=== PATIENT | male | born 1940 | race Caucasian/White ===

== ENCOUNTER → 2016-04-02 | Outpatient (CLI) | payer BC ==
[~2016-04-02] MED LIST: AMIO200T4 PO; ARC10 PO; ARC5 PO; ASPI81TA21 PO; CETI10TA84 PO; COEN1CAP7 PO; COLC0.6T54 PO; CRD200 PO; CYAN10004 PO; DABI150C PO; DOCU-94 PO; ESCI1TAB10 PO; GABA1CAP4 PO; IMDSR30 PO; ISOS30TA3 PO; ISOS60TA25 PO; LPT/20 PO; METO25TA56 PO; MIRA100T PO; MIRA1TAB3 PO; NITR0.4S UT; NRN300 PO; OMEG10007 PO; PROSVENT PO; PRT/20 PO; SYN137 PO; ZLF/100 PO
[2016-04-02 17:07] LABS: URINE APPEARANCE CLEAR (CLEAR); URINE BILIRUBIN NEG (NEG); URINE COLOR YELLOW; URINE NITRITE NEG (NEG); URINE SPECIFIC GRAVITY 1.017 (1.000-1.030); UROBILINOGEN NEG (NEG); ZZUR CULT IF INDIC CLEAN CATCH NO
[2016-04-02 17:17] LABS: MANUAL MICROSCOPIC REQUIRED? NO; REVIEW REQ? NO
[2016-04-02 17:27] LABS: BLOOD UREA NITROGEN 27 mg/dl (7-18); BUN/CREATININE RATIO 14.2 (10-20); CALCIUM 8.9 mg/dl (8.5-10.1); CARBON DIOXIDE 26 mmol/L (21-32); CHLORIDE 101 mmol/L (98-107); GLUCOSE 112 mg/dl (70-99); MAGNESIUM 1.9 mg/dl (1.8-2.4); SODIUM 139 mmol/L (136-145)
[2016-04-02 17:29] LABS: URINE PROTIEN/CREAT RATIO 0.5 (0-0.2); URINE TOTAL PROTEIN 82.3 mg/dl (0-11.9)
[2016-04-02 17:38] LABS: PHOSPHORUS 3.1 mg/dl (2.5-4.9)
== END | disposition home or self-care (01) ==
LOC: C.LABBC 15:10
PROVIDERS: ATTEND Internal Medicine Nephrology
DX: N18.4 Chronic kidney disease, stage 4 (severe) (principal); E03.9 Hypothyroidism, unspecified

== ENCOUNTER → 2016-06-05 | Outpatient (CLI) | payer BC ==
[2016-06-05 15:17] LABS: THYROID STIMULATING HORMONE 75.1 uIu/ml (0.300-4.500)
== END | disposition home or self-care (01) ==
LOC: C.LAB1850 13:46
PROVIDERS: ATTEND Internal Medicine
DX: E03.9 Hypothyroidism, unspecified (principal)

== ENCOUNTER 2016-07-12 19:10 | Emergency (ER) | payer BC ==
[~2016-07-12] VITALS: Ht 175.3 cm; Wt 90.9 kg
[~2016-07-12 19:10] MED LIST changes: -AMIO200T4 PO; -ARC10 PO; -ASPI81TA21 PO; -CETI10TA84 PO; -DABI150C PO; -DOCU-94 PO; -ISOS30TA3 PO; -ISOS60TA25 PO; -MIRA1TAB3 PO; -NITR0.4S UT; -NRN300 PO; -PROSVENT PO; -PRT/20 PO; -SYN137 PO; -ZLF/100 PO
[2016-07-12 19:13] VITALS: TEMP 36.4; Ht 175.3 cm; Wt 90.9 kg
--- NOTE | 2016-07-12 19:52 | EMERGENCY ROOM VISIT NOTE ---
History Report prepared by Parminder: Rubén Willard Under the Supervision of: Dr. Deven Hobbs M.D. First contact with patient: 19:30 Chief Complaint: CONFUSION Stated Complaint: CONFUSION Nursing Triage Summary: per family pt is confused at times yesterday worse than today. pt alert and oriented at present. History of Present Illness The patient is a 75 year old male who presents to the Emergency Room with complaints of worsening confusion starting yesterday. The patient's family states that the patient has had confusion before, however this is worse than usual. The family additionally is stating that the patient has some chronic weakness in one side, and they state that he was complaining of a headache. The family denies any pacemaker or recent change in medication. They additionally state that the patient has Alzheimer's however, it is not usually this bad. Source of History: patient, family Onset: yesterday Position: other (global) Quality: other (confusion) Timing: worsening Associated Symptoms: + headache, + weakness Review of Systems See HPI for pertinent positives & negatives. A total of 10 systems reviewed and were otherwise negative. Past Medical & Surgical Medical Problems: (1) Anxiety State Nos (2) Arterial Disease Nos (3) Atrial Fibrillation (4) Cva (5) Halter monitor (6) Hyperlipidemia Nec/Nos (7) Hypertension Nos (8) Lumbar Disc Displacement (9) Old Myocardial Infarct (10) Renal & Ureteral Dis Nos (11) Urin Tract Infection Nos Family History GI Malignancy Stroke Social History Smoking Status: Former Smoker Alcohol Use: none Drug Use: none Marital Status: Housing Status: lives with significant other Occupation Status: retired Current/Historical Medications Scheduled Amiodarone Hcl (Cordarone), 200 MG PO BID Aspirin Enteric Coated (Ecotrin Or Generic), 81 MG PO DAILY Dabigatran Etexilate Mesylate (Pradaxa), 150 MG PO BID Donepezil HCl (Donepezil HCl), 5 MG PO DAILY Escitalopram Oxalate (Lexapro), 20 MG PO DAILY Gabapentin (Gabapentin), 300 MG PO BID Isosorbide Mononitrate Ext Rel (Imdur Ext Rel), 60 MG PO QAM Metoprolol Tartrate (Lopressor) (Lopressor), 25 MG PO BID Mirabegron (Myrbetriq Er), 25 MG PO DAILY Nitroglycerin (Nitrostat), 0.4 MG UT PRN Scheduled PRN Pantoprazole (Protonix), 20 MG PO DAILY PRN for GI Upset Allergies Coded Allergies: Rosuvastatin (Verified Allergy, Unknown, muscle aches, 07/12/16) Physical Exam Vital Signs Date Time Temp Pulse Resp B/P Pulse Ox O2 Delivery O2 Flow Rate FiO2 07/12/16 22:20 50 18 168/82 98 Room Air 07/12/16 21:06 46 18 164/83 96 Room Air 07/12/16 19:53 46 18 157/60 96 Room Air 07/12/16 19:33 46 07/12/16 19:13 36.4 50 20 186/94 98 Room Air Physical Exam GENERAL: Patient is elderly appearing and in no acute distress. HEENT: No acute trauma, normocephalic atraumatic, mucous membranes moist, no nasal congestion, no scleral icterus. NECK: No stridor, no adenopathy, no meningismus, trachea is midline. LUNGS: No dyspnea. Clear to auscultation and equal bilaterally. No wheeze, no rhonchi. HEART: Regular rate and rhythm. No murmurs, rubs, gallops appreciated. ABDOMEN: Soft, nontender, bowel sounds positive, no masses appreciated, no peritonitis. BACK: No midline tenderness, no CVA tenderness EXTREMITIES: Normal motion all extremities, no cyanosis, no edema. NEUROLOGIC: aware of locations, but periodically asks the same question. Mild dementia family states this is an acute change. No acute motor or sensory deficits, no focal weakness, cranial nerves grossly intact. SKIN: No rash, no jaundice, no diaphoresis. Medical Decision & Procedures ER Provider Diagnostic Interpretation: Radiology results and stated below per my review and radiologist interpretation: CT OF THE HEAD WITHOUT CONTRAST CLINICAL HISTORY: Generalized weakness. Confusion. COMPARISON STUDY: Head CT January 10, 2014 and MRI of the brain October 03, 2015. CT DOSE: 687.98 mGy.cm TECHNIQUE: Helical axial images of the head were obtained without IV contrast. Automated exposure control was utilized for the study. FINDINGS: No acute intracranial hemorrhage, midline shift or mass effect is present. Ventricular dilatation is unchanged. Basilar cisterns are patent. No extra-axial collections are present. An old left frontal lobe infarct is noted. White matter hypodensity suggests small vessel disease. There are no CT findings to suggest acute dural sinus thrombosis or acute territorial infarct. There are no significant calvarial abnormalities. There is mild mucosal thickening of the sinuses. IMPRESSION: No acute intracranial findings. Electronically signed by: Ronal Crocker M.D. 07/12/2016 8:51 PM Dictated Date/Time: 07/12/2016 8:48 PM CHEST ONE VIEW PORTABLE CLINICAL HISTORY: Generalized weakness. COMPARISON STUDY: Chest radiograph August 30, 2014. FINDINGS: Lung volumes are normal. There is no consolidation to suggest pneumonia. There is no evidence of pulmonary edema. Cardiomediastinal silhouette is stable. Widening of the right paratracheal stripe is unchanged. IMPRESSION: No acute cardiopulmonary findings. Electronically signed by: Ronal Crocker M.D. 07/12/2016 8:00 PM Dictated Date/Time: 07/12/2016 7:58 PM Laboratory Results 07/12/16 19:15 Red Blood Count 4.94, Mean Corpuscular Volume 92.5, Mean Corpuscular Hemoglobin 32.2, Mean Corpuscular Hemoglobin Concent 34.8, Mean Platelet Volume 12.1, Neutrophils (%) (Auto) 63.2, Lymphocytes (%) (Auto) 22.5, Monocytes (%) (Auto) 8.5, Eosinophils (%) (Auto) 4.9, Basophils (%) (Auto) 0.5, Neutrophils # (Auto) 4.62, Lymphocytes # (Auto) 1.65, Monocytes # (Auto) 0.62, Eosinophils # (Auto) 0.36, Basophils # (Auto) 0.04 07/12/16 19:15 Test 07/12/16 19:15 07/12/16 20:30 White Blood Count 7.32 K/uL (4.8-10.8) Red Blood Count 4.94 M/uL (4.7-6.1) Hemoglobin 15.9 g/dL (14.0-18.0) Hematocrit 45.7 % (42-52) Mean Corpuscular Volume 92.5 fL (80-100) Mean Corpuscular Hemoglobin 32.2 pg (25-34) Mean Corpuscular Hemoglobin Concent 34.8 g/dl (32-36) Platelet Count 130 K/uL (130-400) Mean Platelet Volume 12.1 fL (7.4-10.4) Neutrophils (%) (Auto) 63.2 % Lymphocytes (%) (Auto) 22.5 % Monocytes (%) (Auto) 8.5 % Eosinophils (%) (Auto) 4.9 % Basophils (%) (Auto) 0.5 % Neutrophils # (Auto) 4.62 K/uL (1.4-6.5) Lymphocytes # (Auto) 1.65 K/uL (1.2-3.4) Monocytes # (Auto) 0.62 K/uL (0.11-0.59) Eosinophils # (Auto) 0.36 K/uL (0-0.5) Basophils # (Auto) 0.04 K/uL (0-0.2) RDW Standard Deviation 49.0 fL (36.4-46.3) RDW Coefficient of Variation 14.5 % (11.5-14.5) Immature Granulocyte % (Auto) 0.4 % Immature Granulocyte # (Auto) 0.03 K/uL (0.00-0.02) Platelet Estimate DECREASED Prothrombin Time 16.1 SECONDS (9.0-12.0) Prothromb Time International Ratio 1.5 (0.9-1.1) Activated Partial Thromboplast Time 53.4 SECONDS (21.0-31.0) Partial Thromboplastin Ratio 2.1 Anion Gap 9.0 mmol/L (3-11) Est Creatinine Clear Calc Drug Dose 35.0 ml/min Estimated GFR () 36.5 Estimated GFR (Non- 31.5 BUN/Creatinine Ratio 17.8 (10-20) Calcium Level 8.8 mg/dl (8.5-10.1) Phosphorus Level 3.5 mg/dl (2.5-4.9) Magnesium Level 2.3 mg/dl (1.8-2.4) Total Bilirubin 0.8 mg/dl (0.2-1) Direct Bilirubin 0.2 mg/dl (0-0.2) Aspartate Amino Transf (AST/SGOT) 29 U/L (15-37) Alanine Aminotransferase (ALT/SGPT) 46 U/L (12-78) Alkaline Phosphatase 78 U/L (45-117) Total Creatine Kinase 55 U/L (39-308) Creatine Kinase MB < 0.5 ng/ml (0.5-3.6) Creatine Kinase MB Ratio (0-3.0) Troponin I < 0.015 ng/ml (0-0.045) Total Protein 7.9 gm/dl (6.4-8.2) Albumin 4.0 gm/dl (3.4-5.0) Lipase 198 U/L (73-393) Urine Color YELLOW Urine Appearance CLEAR (CLEAR) Urine pH 5.0 (4.5-7.5) Urine Specific [place] 1.019 (1.000-1.030) Urine Protein 1+ (NEG) Urine Glucose (UA) NEG (NEG) Urine Ketones NEG (NEG) Urine Occult Blood 1+ (NEG) Urine Nitrite NEG (NEG) Urine Bilirubin NEG (NEG) Urine Urobilinogen NEG (NEG) Urine Leukocyte Esterase TRACE (NEG) Urine WBC (Auto) 1-5 /hpf (0-5) Urine RBC (Auto) 0-4 /hpf (0-4) Urine Hyaline Casts (Auto) 1-5 /lpf (0-5) Urine Epithelial Cells (Auto) 20-30 /lpf (0-5) Urine Bacteria (Auto) NEG (NEG) Laboratory results as reviewed by me. Medications Administered Medications (Trade) Dose Ordered Sig/Charla Route Start Time Stop Time Status Last Admin Dose Admin Sodium Chloride (Nss 500ml) 500 ml @ 999 mls/hr Q31M STAT IV 07/12/16 20:59 07/12/16 21:29 DC 07/12/16 21:06 999 MLS/HR ECG Indication: other (confusion) Rate (beats per minute): 46 Rhythm: sinus bradycardia Findings: no acute ischemic change, no ectopy ED Course 1929: The patient was evaluated in room A9. A complete history and physical exam was performed. 2058: Sodium Chloride 500 ml @ 999 mls/hr IV 2055: I reassessed the patient, and he was in no distress, and I discussed the plan to go home with the family, and they are comfortable with it. 2146: Reevaluated the patient, and he feels much better, and his family notes that he is back to his normal self. Discussed results and discharge instructions : The verbalized understanding and agreement. The patient is ready for discharge. Medical Decision Differential: Toxicological, Infectious, Stroke, SAH, Trauma, Electrolyte Abnormality, Hypoglycemia, Alcohol Intoxication, Drug Intoxication, Cardiac Abnormality, Sepsis, Meningitis/Encephalitis, Trauma, Excited Delirium, Serotonin Syndrome, Psychiatric, amongst other pathologies entertained. 75 yr old male arrives with worsening of his confusion from his baseline Alzheimer dz. Vastly improved with 500ml IV NSS. Labs with mild BUN elevation consistent with some dehydration. No evidence UTI, pna. He does not have meningitis. He looks well and is in no distress. Family admits he hasn't been drinking much because he doesn't like too. They feel completely comfortable bringing him home. RTED if worsening or other concerns. Impression Primary Impression: Dehydration Additional Impression: Confusion Scribe Attestation The scribe's documentation has been prepared under my direction and personally reviewed by me in its entirety. I confirm that the note above accurately reflects all work, treatment, procedures, and medical decision making performed by me. Departure Information Dispostion Home / Self-Care Referrals Orlin Yanez M.D. (PCP) Forms HOME CARE DOCUMENTATION FORM, IMPORTANT VISIT INFORMATION, WORK / SCHOOL INSTRUCTIONS Patient Instructions ED Dehydration, My [facility] Health Problem Qualifiers
--- NOTE | 2016-07-12 20:01 | DIAGNOSTIC IMAGING REPORT ---
CHEST ONE VIEW PORTABLE CLINICAL HISTORY: Generalized weakness. COMPARISON STUDY: Chest radiograph August 30, 2014. FINDINGS: Lung volumes are normal. There is no consolidation to suggest pneumonia. There is no evidence of pulmonary edema. Cardiomediastinal silhouette is stable. Widening of the right paratracheal stripe is unchanged. IMPRESSION: No acute cardiopulmonary findings. Electronically signed by: Ronal Crocker M.D. 07/12/2016 8:00 PM Dictated Date/Time: 07/12/2016 7:58 PM
[2016-07-12] MEDS ORDERED: AMIO200T4 PO (20:10)
[2016-07-12 20:23] LABS: INR 1.5 (0.9-1.1); PARTIAL THROMBOPLASTIN RATIO 2.1; PROTHROMBIN TIME (PATIENT) 16.1 SECONDS (9.0-12.0)
[2016-07-12 20:28] LABS: BASO % 0.5 %; BASO ABS # 0.04 K/uL (0-0.2); COMPLETE YES; EOS % 4.9 %; HEMATOCRIT 45.7 % (42-52); IG% 0.4 %; LYMPH % 22.5 %; LYMPH ABS # 1.65 K/uL (1.2-3.4); MEAN CELL VOLUME 92.5 fL (80-100); MEAN CORPUSCULAR HEMOGLOBIN 32.2 pg (25-34); MEAN CORPUSCULAR HGB CONC 34.8 g/dl (32-36); MEAN PLATELET VOLUME 12.1 fL (7.4-10.4); MONO % 8.5 %; NEUT % 63.2 %; PLATELET COUNT 130 K/uL (130-400); PLT ESTIMATE DECREASED; RED BLOOD COUNT 4.94 M/uL (4.7-6.1); WHITE BLOOD COUNT 7.32 K/uL (4.8-10.8)
[2016-07-12 20:35] LABS: ALT/SGPT 46 U/L (12-78); AST/SGOT 29 U/L (15-37); BLOOD UREA NITROGEN 36 mg/dl (7-18); BUN/CREATININE RATIO 17.8 (10-20); CALCIUM 8.8 mg/dl (8.5-10.1); CARBON DIOXIDE 29 mmol/L (21-32); CHLORIDE 103 mmol/L (98-107); GLUCOSE 101 mg/dl (70-99); MAGNESIUM 2.3 mg/dl (1.8-2.4); POTASSIUM 4.1 mmol/L (3.5-5.1); SODIUM 141 mmol/L (136-145)
[2016-07-12 20:38] LABS: ALKALINE PHOSPHATASE 78 U/L (45-117); PHOSPHORUS 3.5 mg/dl (2.5-4.9)
[2016-07-12 20:52] LABS: URINE APPEARANCE CLEAR (CLEAR); URINE BILIRUBIN NEG (NEG); URINE COLOR YELLOW; URINE EPITHELIAL CELL AUTO 20-30 /lpf (0-5); URINE NITRITE NEG (NEG); URINE SPECIFIC GRAVITY 1.019 (1.000-1.030); UROBILINOGEN NEG (NEG); ZZUR CULT IF INDIC CLEAN CATCH NO
--- NOTE | 2016-07-12 20:52 | DIAGNOSTIC IMAGING REPORT ---
CT OF THE HEAD WITHOUT CONTRAST CLINICAL HISTORY: Generalized weakness. Confusion. COMPARISON STUDY: Head CT January 10, 2014 and MRI of the brain October 03, 2015. CT DOSE: 687.98 mGy.cm TECHNIQUE: Helical axial images of the head were obtained without IV contrast. Automated exposure control was utilized for the study. FINDINGS: No acute intracranial hemorrhage, midline shift or mass effect is present. Ventricular dilatation is unchanged. Basilar cisterns are patent. No extra-axial collections are present. An old left frontal lobe infarct is noted. White matter hypodensity suggests small vessel disease. There are no CT findings to suggest acute dural sinus thrombosis or acute territorial infarct. There are no significant calvarial abnormalities. There is mild mucosal thickening of the sinuses. IMPRESSION: No acute intracranial findings. Electronically signed by: Ronal Crocker M.D. 07/12/2016 8:51 PM Dictated Date/Time: 07/12/2016 8:48 PM
[2016-07-12 20:54] LABS: MANUAL MICROSCOPIC REQUIRED? NO; REVIEW REQ? NO
[2016-07-12] MEDS ORDERED: SODIUM CHLORIDE 0.9% 500ML 500 ML IV STA (20:59)
[2016-07-12 22:20] VITALS: BP 168/82; PULSE 50; O2SAT 98
[2016-07-13] MEDS ORDERED: DABI150C PO (12:14)
[2016-07-13] MEDS ORDERED: ASPI81TA21 PO (13:56)
[2016-07-13] MEDS ORDERED: AMIO200T4 PO (15:57)
[2016-07-13] MEDS ORDERED: ZLF/100 PO (15:57)
[2016-07-13] MEDS ORDERED: DOCU-94 PO (15:57)
[2016-07-13] MEDS ORDERED: SYN137 PO (15:57)
[2016-07-13] MEDS ORDERED: CETI10TA84 PO (15:57)
[2016-07-13] MEDS ORDERED: ARC10 PO (15:57)
[2016-07-13] MEDS ORDERED: MIRA1TAB3 PO (15:58)
[2016-07-13] MEDS ORDERED: ISOS30TA3 PO (16:01)
[2016-07-13] MEDS ORDERED: PROSVENT PO (16:01)
[2016-07-13] MEDS ORDERED: NITR0.4S UT (17:28)
[2016-07-13] MEDS ORDERED: PRT/20 PO (17:30)
[2016-07-13] MEDS ORDERED: ISOS60TA25 PO (20:10)
[2016-07-15] MEDS ORDERED: NRN300 PO (11:28)
== END 2016-07-12 22:21 | disposition home or self-care (01) ==
LOC: C.EDB 19:11 → C.EDC 22:21
DX: E86.0 Dehydration (principal); R41.0 Disorientation, unspecified; R00.1 Bradycardia, unspecified; I48.91 Unspecified atrial fibrillation; E78.5 Hyperlipidemia, unspecified; I10 Essential (primary) hypertension; I25.2 Old myocardial infarction; F41.9 Anxiety disorder, unspecified; Z86.73 Personal history of transient ischemic attack (TIA), and cerebral infarction without residual deficits; Z87.440 Personal history of urinary (tract) infections; Z87.442 Personal history of urinary calculi; Z87.891 Personal history of nicotine dependence; Z79.82 Long term (current) use of aspirin; Z79.899 Other long term (current) drug therapy; Z88.8 Allergy status to other drugs, medicaments and biological substances; Z80.9 Family history of malignant neoplasm, unspecified; Z82.3 Family history of stroke

== ENCOUNTER 2016-07-13 13:57 | Observation (INO) | payer BC ==
[~2016-07-13] VITALS: Ht 175.3 cm; Wt 92.0 kg
[~2016-07-13 13:57] MED LIST changes: +AMIO200T4 PO; +ASPI81TA21 PO; -COEN1CAP7 PO; -COLC0.6T54 PO; -CRD200 PO; -CYAN10004 PO; +DABI150C PO; -IMDSR30 PO; -LPT/20 PO; -OMEG10007 PO
--- NOTE | 2016-07-13 15:09 | EMERGENCY ROOM VISIT NOTE ---
History Report prepared by Parminder: Tyler Hirsch Under the Supervision of: Dr. Edgardo Logan M.D. First contact with patient: 14:22 Chief Complaint: CONFUSION Stated Complaint: CONFUSION,WEAKNESS Nursing Triage Summary: patient seen here last night for confusion and per family he is not any better. Patient answers all questions appropriatly in triage. History of Present Illness The patient is a 75 year old male who presents to the Emergency Room with complaints of persistent confusion that started 2 days ago. Per patient's family , the patient has been having worsening confusion. They say that he has been struggling with his memory and hasn't been able to answer all of their questions when they talk to him. The patient presented to the ED yesterday and was given an IV. The patient's symptoms improved and the patient was discharged home. Per patient's family, this morning the patient's symptoms had worsened again and they decided to bring him back to the ED for further evaluation as they were advised to last night if his symptoms returned. The patient also complains of his feet feeling numb. However, per patient's family, his doctor stopped giving him Gabapentin for these symptoms so the patient has not taken this medication for the numbness in his feet for the past 4-5 days. The patient denies chest pain, shortness of breath, nausea, vomiting, or fevers at this time. He does have a history of stroke, TIA, and heart attack. Per patient's family, they are concerned that his symptoms might be because of his medications. Source of History: patient, family Onset: 2 days ago Position: other (global) Timing: other (persistent) Associated Symptoms: + numbness (in his feet), No SOB, No chest pain, No fevers, No nausea, No vomiting Note: Other associated symptoms: struggling with memory, difficulty communicating Review of Systems Patient's review of symptoms from yesterday was reviewed. No changes from yesterday were noted. Past Medical & Surgical Medical Problems: (1) Anxiety State Nos (2) Arterial Disease Nos (3) Atrial Fibrillation (4) Cva (5) Halter monitor (6) Hyperlipidemia Nec/Nos (7) Hypertension Nos (8) Lumbar Disc Displacement (9) Old Myocardial Infarct (10) Renal & Ureteral Dis Nos (11) Urin Tract Infection Nos Family History GI Malignancy Stroke Social History Smoking Status: Former Smoker Alcohol Use: none Drug Use: none Marital Status: Housing Status: lives with significant other Occupation Status: retired Current/Historical Medications Scheduled Amiodarone Hcl (Cordarone), 200 MG PO DAILY Aspirin Enteric Coated (Ecotrin Or Generic), 81 MG PO DAILY Cetirizine (Zyrtec), 10 MG PO DAILY Dabigatran Etexilate Mesylate (Pradaxa), 150 MG PO BID Donepezil HCl (Donepezil HCl), 10 MG PO DAILY Isosorbide Mononitrate Ext Rel (Imdur Ext Rel), 60 MG PO QAM Levothyroxine Sodium (Levothyroxine Sodium), 137 MCG PO DAILY Mirabegron (Myrbetriq Er), 50 MG PO DAILY Nitroglycerin (Nitrostat), 0.4 MG UT PRN Sertraline HCl (Sertraline HCl), 100 MG PO DAILY [Prosvent], 1 TAB PO DAILY Scheduled PRN Docusate Sodium (Colace), 1 CAP PO BID PRN for Constipation Pantoprazole (Protonix), 20 MG PO DAILY PRN for GI Upset Allergies Coded Allergies: Rosuvastatin (Verified Allergy, Unknown, muscle aches, 07/12/16) Physical Exam Vital Signs Date Time Temp Pulse Resp B/P Pulse Ox O2 Delivery O2 Flow Rate FiO2 07/13/16 19:14 55 18 211/79 99 Room Air 07/13/16 18:28 54 07/13/16 17:35 53 20 174/75 98 07/13/16 16:18 51 16 164/75 96 Room Air 07/13/16 14:30 49 07/13/16 14:10 36.4 54 20 96 Room Air Physical Exam GENERAL: Patient awake, alert, oriented x 3, but is slow to answer some questions. SKIN: No erythema, pallor, cyanosis or rash HEENT: Normal head, pupils equal, reactive to light and accommodation. Ears increased cerumen bilaterally. Oral cavity and posterior pharynx appear normal. Neck: Without adenopathy, no neck vein distention. LUNGS: Clear to auscultation. No wheezes, no rales, no rhonchi. HEART: No murmurs. No gallops. No rubs ABDOMEN: No masses, no rebound, no hepatomegaly or splenomegaly. EXTREMITIES: No signs of trauma. No pedal or pretibial edema. No calf or thigh tenderness. NEUROLOGIC: Cranial nerves II-XII within normal limits. No gross motor sensory function deficits. Medical Decision & Procedures Laboratory Results 07/13/16 15:42 07/13/16 15:42 Test 07/13/16 15:42 07/13/16 16:51 Red Blood Count 4.85 M/uL (4.7-6.1) Mean Corpuscular Volume 90.7 fL (80-100) Mean Corpuscular Hemoglobin 32.0 pg (25-34) Mean Corpuscular Hemoglobin Concent 35.2 g/dl (32-36) RDW Standard Deviation 47.1 fL (36.4-46.3) RDW Coefficient of Variation 14.2 % (11.5-14.5) Mean Platelet Volume 12.4 fL (7.4-10.4) Anion Gap 7.0 mmol/L (3-11) Est Creatinine Clear Calc Drug Dose 39.1 ml/min Estimated GFR () 41.4 Estimated GFR (Non- 35.8 BUN/Creatinine Ratio 14.9 (10-20) Calcium Level 8.7 mg/dl (8.5-10.1) Thyroid Stimulating Hormone (TSH) 12.300 uIu/ml (0.300-4.500) Urine Color YELLOW Urine Appearance CLEAR (CLEAR) Urine pH 5.5 (4.5-7.5) Urine Specific [place] 1.010 (1.000-1.030) Urine Protein 1+ (NEG) Urine Glucose (UA) NEG (NEG) Urine Ketones NEG (NEG) Urine Occult Blood TRACE (NEG) Urine Nitrite NEG (NEG) Urine Bilirubin NEG (NEG) Urine Urobilinogen NEG (NEG) Urine Leukocyte Esterase NEG (NEG) Urine WBC (Auto) 0 /hpf (0-5) Urine RBC (Auto) 0-4 /hpf (0-4) Urine Hyaline Casts (Auto) 1-5 /lpf (0-5) Urine Epithelial Cells (Auto) 0-5 /lpf (0-5) Urine Bacteria (Auto) NEG (NEG) Laboratory results as stated above per my review. Medications Administered Medications (Trade) Dose Ordered Sig/Charla Route Start Time Stop Time Status Last Admin Dose Admin Sodium Chloride (Nss 1000ml) 1,000 ml @ 1,000 mls/hr Q1H ONCE IV 5/1/17 16:15 07/13/16 17:14 DC 07/13/16 16:15 1,000 MLS/HR ED Course 1421: Past medical records reviewed. The patient was evaluated in room C4. A complete history and physical examination was performed. 1615: Ordered NSS 1000 ml @ 1000 mls/hr IV. 1704: At this time, I reevaluated the patient and updated him. The tech's were going over the patient's med list. 1740: At this time, I reevaluated the patient and he was feeling more confused. Per patient's family, the patient is acting differently from baseline and state that he is acting more confused and repeating words and stories. 182: At this time, I discussed the patient's case with Dr. Nabeel DEL TORO and he agreed to accept the patient for further evaluation. Medical Decision Differential diagnoses include dementia, CVA, TIA, metabolic disorder, or medication error. The patient was seen in our emergency department last evening but returns with increased confusion according to family. Yesterday patient had improved after receiving IV fluids. Multiple labs, EKG and imaging were obtained. The patient was given IV fluids again. Family feels that he is certainly different than he was only 48 hours ago. The patient recently had gabapentin discontinued. This may also account for his symptoms. TIA or CVA remain in the differential. MRI is pending. Patient will require further evaluation in the hospital. I discussed care with the patient, family members and with the hospitalist. Consults Time Called: 1815 Consulting Physician: Dr. Nabeel DEL TORO Returned Call: 1821 At this time, I discussed the patient's case with Dr. Nabeel DEL TORO and he agreed to accept the patient for further evaluation. Impression Primary Impression: Altered mental status Scribe Attestation The scribe's documentation has been prepared under my direction and personally reviewed by me in its entirety. I confirm that the note above accurately reflects all work, treatment, procedures, and medical decision making performed by me. Departure Information Dispostion Being Evaluated By Hospitalist Referrals ,Сергей Fitzgerald M.D. (PCP)
[2016-07-13 15:54] LABS: MEAN CELL VOLUME 90.7 fL (80-100); MEAN CORPUSCULAR HGB CONC 35.2 g/dl (32-36); MEAN PLATELET VOLUME 12.4 fL (7.4-10.4); PLATELET COUNT 131 K/uL (130-400); RED BLOOD COUNT 4.85 M/uL (4.7-6.1)
[2016-07-13] MEDS ORDERED: SYN137 PO (15:57)
[2016-07-13] MEDS ORDERED: ZLF/100 PO (15:57)
[2016-07-13] MEDS ORDERED: AMIO200T4 PO (15:57)
[2016-07-13] MEDS ORDERED: ARC10 PO (15:57)
[2016-07-13] MEDS ORDERED: CETI10TA84 PO (15:57)
[2016-07-13] MEDS ORDERED: DOCU-94 PO (15:57)
[2016-07-13] MEDS ORDERED: MIRA1TAB3 PO (15:58)
[2016-07-13] MEDS ORDERED: ISOS30TA3 PO (16:01)
[2016-07-13] MEDS ORDERED: PROSVENT PO (16:01)
[2016-07-13 16:12] LABS: BUN/CREATININE RATIO 14.9 (10-20); CALCIUM 8.7 mg/dl (8.5-10.1); CREATININE 1.8 mg/dl (0.60-1.40); POTASSIUM 4.1 mmol/L (3.5-5.1)
[2016-07-13] MEDS ORDERED: SODIUM CHLORIDE 0.9% 1000ML 1,000 ML IV ONE (16:15)
[2016-07-13 17:08] LABS: MANUAL MICROSCOPIC REQUIRED? NO; REVIEW REQ? NO; URINE APPEARANCE CLEAR (CLEAR); URINE BILIRUBIN NEG (NEG); URINE COLOR YELLOW; URINE EPITHELIAL CELL AUTO 0-5 /lpf (0-5); URINE NITRITE NEG (NEG); URINE PH 5.5 (4.5-7.5); UROBILINOGEN NEG (NEG); ZZUR CULT IF INDIC CLEAN CATCH NO
[2016-07-13] MEDS ORDERED: NITR0.4S UT (17:28)
[2016-07-13] MEDS ORDERED: PRT/20 PO (17:30)
[2016-07-13] MEDS ORDERED: DONEPEZIL HCL 10 MG TAB PO ONE (19:51)
[2016-07-13] MEDS ORDERED: LEVOTHYROXINE 137 MCG TAB PO ONE (19:51)
[2016-07-13] MEDS ORDERED: AMIODARONE 200 MG TAB PO ONE (19:51)
[2016-07-13] MEDS ORDERED: SERTRALINE HCL 100 MG TAB PO ONE (19:51)
[2016-07-13 19:53] LABS: THYROID STIMULATING HORMONE 12.3 uIu/ml (0.300-4.500)
[2016-07-13] MEDS ORDERED: ENOXAPARIN 40 MG/0.4 ML SYR SQ SCH (20:00)
[2016-07-13] MEDS ORDERED: MAGNESIUM HYDROXIDE SUSP 30 ML UDC PO PRN (20:00)
[2016-07-13] MEDS ORDERED: ONDANSETRON INJ 2 MG/ML 2 ML VIAL IV PRN (20:00)
[2016-07-13] MEDS ORDERED: DOCUSATE SODIUM 100 MG CAP PO PRN (20:00)
[2016-07-13] MEDS ORDERED: ACETAMINOPHEN 325 MG TAB PO PRN (20:00)
[2016-07-13] MEDS ORDERED: ALUMINUM/MAGNESIUM/SIMETH (MAALOX MAX) 30 ML UDC PO PRN (20:00)
[2016-07-13] MEDS ORDERED: NITROGLYCERIN 0.4 MG SL PER TAB CHARGE UT SCH (20:00)
[2016-07-13] MEDS ORDERED: POLYETHYLENE (MIRALAX) 17 GM PACK PO PRN (20:00)
[2016-07-13] MEDS ORDERED: ISOS60TA25 PO (20:10)
--- NOTE | 2016-07-13 20:11 | History and Physical ---
History & Physical Date & Time of Service: July 13, 2016 at 20:10 Chief Complaint: Confusion,Weakness Primary Care Physician: Сергей Resendez M.D. Past Medical/Surgical History Medical Problems: (1) Anxiety State Nos Status: Chronic (2) Arterial Disease Nos Status: Chronic (3) Atrial Fibrillation Status: Chronic (4) Cva Status: Chronic (5) Halter monitor Status: Chronic (6) Hyperlipidemia Nec/Nos Status: Chronic (7) Hypertension Nos Status: Chronic (8) Lumbar Disc Displacement Status: Chronic (9) Old Myocardial Infarct Status: Chronic (10) Renal & Ureteral Dis Nos Status: Chronic (11) Urin Tract Infection Nos Status: Resolved Family History GI Malignancy Stroke Social History Smoking Status: Former Smoker Drug Use: none Marital Status: Housing status: lives with family Occupational Status: retired Immunizations History of Influenza Vaccine: N/A Influenza Vaccine Date: Dec 25, 2007 History of Tetanus Vaccine?: Unknown History of Pneumococcal: Unknown Pneumococcal Date: Aug 23, 2011 History of Hepatitis B Vaccine: No Multi-Drug Resistant Organisms History of MDRO: No Allergies Coded Allergies: Rosuvastatin (Verified Allergy, Unknown, muscle aches, 07/12/16) Home Medications Scheduled Amiodarone Hcl (Cordarone), 200 MG PO DAILY Aspirin Enteric Coated (Ecotrin Or Generic), 81 MG PO DAILY Cetirizine (Zyrtec), 10 MG PO DAILY Dabigatran Etexilate Mesylate (Pradaxa), 150 MG PO BID Donepezil HCl (Donepezil HCl), 10 MG PO DAILY Isosorbide Mononitrate Ext Rel (Imdur Ext Rel), 60 MG PO QAM Levothyroxine Sodium (Levothyroxine Sodium), 137 MCG PO DAILY Mirabegron (Myrbetriq Er), 50 MG PO DAILY Nitroglycerin (Nitrostat), 0.4 MG UT PRN Sertraline HCl (Sertraline HCl), 100 MG PO DAILY [Prosvent], 1 TAB PO DAILY Scheduled PRN Docusate Sodium (Colace), 1 CAP PO BID PRN for Constipation Pantoprazole (Protonix), 20 MG PO DAILY PRN for GI Upset Physical Exam Vital Signs Date Time Temp Pulse Resp B/P Pulse Ox O2 Delivery O2 Flow Rate FiO2 07/13/16 19:14 55 18 211/79 99 Room Air 07/13/16 18:28 54 07/13/16 17:35 53 20 174/75 98 07/13/16 16:18 51 16 164/75 96 Room Air 07/13/16 14:30 49 07/13/16 14:10 36.4 54 20 96 Room Air Diagnostics Laboratory Results Results Past 24 Hours Test 07/13/16 15:42 07/13/16 16:51 Range/Units White Blood Count 7.60 4.8-10.8 K/uL Red Blood Count 4.85 4.7-6.1 M/uL Hemoglobin 15.5 14.0-18.0 g/dL Hematocrit 44.0 42-52 % Mean Corpuscular Volume 90.7 80-100 fL Mean Corpuscular Hemoglobin 32.0 25-34 pg Mean Corpuscular Hemoglobin Concent 35.2 32-36 g/dl RDW Standard Deviation 47.1 36.4-46.3 fL RDW Coefficient of Variation 14.2 11.5-14.5 % Platelet Count 131 130-400 K/uL Mean Platelet Volume 12.4 7.4-10.4 fL Sodium Level 140 136-145 mmol/L Potassium Level 4.1 3.5-5.1 mmol/L Chloride Level 105 98-107 mmol/L Carbon Dioxide Level 28 21-32 mmol/L Anion Gap 7.0 3-11 mmol/L Blood Urea Nitrogen 27 7-18 mg/dl Creatinine 1.80 0.60-1.40 mg/dl Est Creatinine Clear Calc Drug Dose 39.1 ml/min Estimated GFR () 41.4 Estimated GFR (Non- 35.8 BUN/Creatinine Ratio 14.9 10-20 Random Glucose 99 70-99 mg/dl Calcium Level 8.7 8.5-10.1 mg/dl Thyroid Stimulating Hormone (TSH) 12.300 0.300-4.500 uIu/ml Urine Color YELLOW Urine Appearance CLEAR CLEAR Urine pH 5.5 4.5-7.5 Urine Specific [place] 1.010 1.000-1.030 Urine Protein 1+ NEG Urine Glucose (UA) NEG NEG Urine Ketones NEG NEG Urine Occult Blood TRACE NEG Urine Nitrite NEG NEG Urine Bilirubin NEG NEG Urine Urobilinogen NEG NEG Urine Leukocyte Esterase NEG NEG Urine WBC (Auto) 0 0-5 /hpf Urine RBC (Auto) 0-4 0-4 /hpf Urine Hyaline Casts (Auto) 1-5 0-5 /lpf Urine Epithelial Cells (Auto) 0-5 0-5 /lpf Urine Bacteria (Auto) NEG NEG Impression Assessment and Plan obs #[id number] VTE Prophylaxis VTE Risk Assessment Done? Y/N: Yes Risk Level: Moderate
[2016-07-13 20:48] VITALS: BP 199/95; PULSE 55; TEMP 36.8; O2SAT 96; Ht 175.3 cm; Wt 92.0 kg
[2016-07-13] MEDS: GABAPENTIN 300 MG CAP PO SCH (22:17)
[2016-07-13] MEDS: DABIGATRAN ELEXILATE 75 MG CAP PO SCH (22:18)
[2016-07-13] MEDS ORDERED: HydrALAZINE HCL 20 MG/ML VIAL IV. PRN (22:45)
--- NOTE | 2016-07-13 23:18 | HISTORY & PHYSICAL EXAMINATION ---
DATE OF ADMISSION: 07/13/2016 CHIEF COMPLAINT: Altered mental status. HISTORY OF PRESENT ILLNESS: The patient is somewhat confused and the history is obtained mostly from the daughters and from the chart, although, to a degree it is a little hard to tell how much the patient is truly confused versus how much he may be a little bit slow, how much his very anxious daughters are speaking for him and therefore he simply chooses not to speak. At any rate, he has had about 3 or 4 days of gradually worsening mental status; they just note he is out of it. He is not really talking much. He is more withdrawn, normally he is very boisterous and talkative and in spite of carrying a diagnosis of dementia certainly lives independently with his and gets along okay. Over the last couple of days, he has just had this slow worsening of his mentation. They brought him to the ER yesterday, he was given some IV fluids, perked up some, was sent home, but unfortunately this morning he was right back to being confused again. REVIEW OF SYSTEMS: Negative for fevers, chills or sweats. Negative for cough or shortness of breath. Negative for any dysuria, urinary incontinence or diarrhea. Generally negative for any symptoms at all except for as above. Review of symptoms is otherwise negative. Interestingly, on review of his charts on the June 05 visit, it was discerned that he was not taking his Synthroid as prescribed. A TSH was checked and it was 75 and then on followup he was resumed on Synthroid. Also, separately, while it is not clear exactly what he was taking as far as dosing, his medication list has his gabapentin listed as 600 mg b.i.d. Vaguely, it seems like he may have been taking 600 mg t.i.d. and at any rate he ran out of his prescription entirely 5 days ago and apparently was told at the pharmacy that it would not be filled again until October. I do not see anything in the outpatient record about either the patient, or the pharmacy contacting Dr. Resendez's office on this and the only note that I really see is the family calling in concerned about his confusion, which then led to of course a recommendation for the patient to have an urgent evaluation. PAST MEDICAL HISTORY: Includes; allergic rhinitis, abdominal aortic aneurysm, anxiety, coronary artery disease, BPH, bradycardia, gout, reflux with reflux esophagitis, migraine, dementia, hyperlipidemia, hypertension, hypothyroidism, lumbar radiculopathy, microalbumin, peripheral artery disease, paroxysmal atrial fibrillation, peripheral neuropathy, CKD approximately stage 4, prior stroke, B12 and vitamin D deficiency and urinary urgency. MEDICATIONS: B12 1000 mcg daily; Aricept 10 mg daily; gabapentin 600 mg b.i.d. per the medication list, completely out over the last 5 days per the family and unclear exactly how much he was taking prior to that; Imdur 60 mg daily; Synthroid 137 mcg daily; Myrbetriq 50 mg daily; nitroglycerin 0.4 under the tongue p.r.n. chest pain; Pradaxa 150 mg twice a day; Zoloft 100 mg daily and Zyrtec 10 mg, uncertain if he takes all the time. ALLERGIES: INCLUDE ROSUVASTATIN. PAST SURGICAL HISTORY: Appendectomy, cardiac catheterization and stenting, low back surgery and lymphadenectomy. FAMILY HISTORY: Colon cancer, Alzheimer's, cardiac disease, type 2 diabetes and bone cancer. SOCIAL HISTORY: He is a former smoker, and lives with his . Generally they have been getting along okay, although the daughters note that may be they have been having a little bit more trouble with medications recently. PHYSICAL EXAMINATION: VITAL SIGNS: Temp 36.4, pulse 54, respiratory rate 20, blood pressure 164/75 and 96% on room air. GENERAL: He is awake. He is actually oriented x2. Knowing his name, knowing he is at [facility] and stating the year as 2005. No acute distress. HEENT: Normocephalic, atraumatic. Mucous membranes are moist. CARDIOVASCULAR: Regular without rubs, murmurs or gallops. LUNGS: Clear to auscultation bilaterally. No rales, rhonchi or wheezes, with good effort. ABDOMEN: Soft, nondistended, nontender, no masses or organomegaly. EXTREMITIES: Without cyanosis, clubbing or edema. No calf tenderness. SKIN: Shows no rashes, no pallor or icterus. NEUROLOGIC: Shows cranial nerves II-XII to be grossly intact. Gross motor and sensory are intact. He shows no focal deficits. SKIN: Shows no rashes. No pallor or icterus. MUSCULOSKELETAL: Yields no gross lesions, no gross deformities, normal spinal alignment and mobility, no notable joint effusions. MENTAL STATUS: Shows somewhat withdrawn initially, although once I start talking to him directly he brightens his face and talks some. He does seem to be a bit confused. He looks at his daughter and when I ask who she is he clearly seems to be struggling with the answer, but then gets a hearty laugh and saying that it is his , knowing that this is not the case, although he never truly correctly identifies her as his daughter. Again, he is disoriented to the year, but knows that he is here in the hospital and interacts fairly appropriately. LABORATORIES AND DIAGNOSTICS: CBC with a white count of 7.6, hemoglobin 15.5, platelets 131. Basic metabolic panel with sodium 140, potassium 4.1, chloride 105, CO2 28, BUN 27, creatinine 1.8, calcium 8.7 and glucose 99. TSH of 12.3, about six weeks ago it was 75. Urinalysis is yellow and clear. Specific gravity 1.010 with 1+ protein, trace blood, negative bacteria. An MRI of brain has been ordered by the ER. ASSESSMENT AND PLAN: 1. Acute toxic encephalopathy; in reviewing the possible causes for his altered mental status, focal neurologic deficits were not evident on exam, so cerebral vascular disease seems highly unlikely, although once or twice a year people do present with no focal neuro deficits other than showing confusion as their main sign as the stroke and given that he is exceedingly at high risk with his vascular disease and chronic kidney disease, certainly further imaging of his brain seems extremely reasonable; however, this appears to be much more consistent with toxic encephalopathy, likely due to his recent accidental medication changes, most notably the abrupt cessation of gabapentin possibly at a dose as high as 600 mg t.i.d. and certainly not clear exactly what his dose was. I tried searching the prescription drug monitoring program for better information on what he may have actually had in his possession and unfortunately no patient was found. Certainly, another potential medication change would be simply getting back to therapeutic on his Synthroid, at the same time as the abrupt withdrawal of his gabapentin in an elderly male with a degree of dementia and certainly beyond that given the rest of his medication list and the family acknowledging that the patient and are having more and more difficulty with getting his medications right and 2 very clear accidental medication errors, with him not taking his Synthroid correctly and then the apparent accidental excessive dosing of gabapentin followed by abrupt cessation of gabapentin. It is also exceedingly plausible that his other meds could be being taken in error as well. In this respect, we will be observing him on medical-surgical, serial exams, followup for any metabolic or infectious signs that could be causing his encephalopathy although currently he shows none. Resuming his gabapentin at 600 mg b.i.d. since that was his last known true dose and certainly even if he was taking more, it would not be nearly as abrupt a change as going down to zero; the medication was not stopped because of side effects or lack of clinical utility, apparently it was helping with his foot neuropathy and it was stopped simply because he apparently went through too fast, ran out; the pharmacy noted that he was due for refills and as far as I can tell nothing was noted to inform his PCP of any of this. 2. Atrial fibrillation; follow his rates, continue his amiodarone and continue his Pradaxa. 3. Coronary artery disease and peripheral vascular disease; continue his aspirin. 4. Dementia; continue his donepezil. 5. Hypothyroidism; his TSH about 6 weeks ago was 75, it is now down to 12.5 and it appears that he has only been resumed on his Synthroid; about 3 or maybe 4 weeks ago, so certainly for true judgment of therapeutic dosing would want to repeat a TSH in another 2 weeks or so and then make further dose adjustments, but I screened him this evening to ensure that it was in fact moving in the right direction. 6. Benign prostatic hypertrophy and apparent overactive bladder; certainly I harbor concerns about the utility of his Myrbetriq and may want to try cessation of it, but did not want to make too many medication changes, although once we will continue it for now. 7. Deep venous thrombosis prophylaxis, Pradaxa. 8. Disposition: [facility]. We are getting case management involved to try to help with home nursing to help organize his medications and have less of a chance of accidental errors in the future. LUZ
[2016-07-13 23:40] VITALS: BP 165/80; PULSE 61; TEMP 36.4; O2SAT 97
[2016-07-14] VITALS (7 sets, daily range): BP systolic 92–168; BP diastolic 52–83; PULSE 50–58; TEMP 36.3–36.8; O2SAT 94–97
[2016-07-14] MEDS ORDERED: IV FLUIDS COMPLETED PRN (00:45)
[2016-07-14] MEDS: LEVOTHYROXINE 137 MCG TAB PO SCH (06:16)
[2016-07-14] MEDS: GABAPENTIN 300 MG CAP PO SCH ×2 (08:08→21:26)
[2016-07-14] MEDS: ASPIRIN 81 MG ECTAB PO SCH (08:08)
[2016-07-14] MEDS: SERTRALINE HCL 100 MG TAB PO SCH (08:08)
[2016-07-14] MEDS: ISOSORBIDE MONONITRATE 30 MG TABCR PO SCH (08:08)
[2016-07-14] MEDS: AMIODARONE 200 MG TAB PO SCH (08:08)
[2016-07-14] MEDS: DABIGATRAN ELEXILATE 75 MG CAP PO SCH ×2 (08:08→21:26)
[2016-07-14] MEDS: DONEPEZIL HCL 10 MG TAB PO SCH (08:08)
[2016-07-14] MEDS: MIRABEGRON ER 25 MG TAB PO SCH (08:08)
[2016-07-14] MEDS ORDERED: NURSING VERBAL MED ORDER ONE (10:15)
[2016-07-14] MEDS ORDERED: LORAZEPAM INJ 0.5 MG in SYRINGE 0.75 ML IV SCH (12:00)
--- NOTE | 2016-07-14 13:53 | Progress Note ---
Subjective Date of Service: July 14, 2016. Subjective Pt evaluation today including: conversation w/ patient, physical exam, chart review, lab review, review of studies, review of inpatient medication list Pt more alert and oriented x 3 Resting comfortably in bed No distress noted Problem List Medical Problems: (1) Altered mental status Status: Acute (2) Confusion Status: Acute (3) Dehydration Status: Acute Review of Systems Constitutional: No chills, No fever Respiratory: No cough, No dyspnea on exertion, No shortness of breath, No sputum, No wheezing Cardiac: No chest pain, No orthopnea Abdomen: No constipation, No diarrhea, No nausea, No pain, No vomiting Musculoskeletal: No joint pain, No muscle pain Male : No dysuria, No urinary frequency Objective Vital Signs Date Time Temp Pulse Resp B/P Pulse Ox O2 Delivery O2 Flow Rate FiO2 07/14/16 08:00 Room Air 07/14/16 07:58 36.3 54 18 168/83 97 Room Air 07/14/16 05:04 36.8 50 18 124/72 96 Room Air 07/14/16 00:00 Room Air 07/13/16 23:40 36.4 61 20 165/80 97 Room Air 07/13/16 20:48 36.8 55 16 199/95 96 Room Air 07/13/16 20:18 55 194/86 96 Room Air 07/13/16 19:14 55 18 211/79 99 Room Air 07/13/16 18:28 54 07/13/16 17:35 53 20 174/75 98 07/13/16 16:18 51 16 164/75 96 Room Air 07/13/16 14:30 49 07/13/16 14:10 36.4 54 20 96 Room Air Physical Exam General Appearance: WD/WN, no apparent distress Neck: supple, no adenopathy Respiratory/Chest: lungs clear, normal breath sounds Cardiovascular: no edema, no gallop Abdomen: non tender, soft Neurologic/Psychiatric: alert, oriented x 3 Laboratory Results Last 24 Hours Test 07/13/16 15:42 07/13/16 16:51 07/14/16 08:30 White Blood Count 7.60 K/uL Red Blood Count 4.85 M/uL Hemoglobin 15.5 g/dL Hematocrit 44.0 % Mean Corpuscular Volume 90.7 fL Mean Corpuscular Hemoglobin 32.0 pg Mean Corpuscular Hemoglobin Concent 35.2 g/dl RDW Standard Deviation 47.1 fL RDW Coefficient of Variation 14.2 % Platelet Count 131 K/uL Mean Platelet Volume 12.4 fL Sodium Level 140 mmol/L Potassium Level 4.1 mmol/L Chloride Level 105 mmol/L Carbon Dioxide Level 28 mmol/L Anion Gap 7.0 mmol/L Blood Urea Nitrogen 27 mg/dl Creatinine 1.80 mg/dl Est Creatinine Clear Calc Drug Dose 39.1 ml/min Estimated GFR () 41.4 Estimated GFR (Non- 35.8 BUN/Creatinine Ratio 14.9 Random Glucose 99 mg/dl Calcium Level 8.7 mg/dl Thyroid Stimulating Hormone (TSH) 12.300 uIu/ml Urine Color YELLOW Urine Appearance CLEAR Urine pH 5.5 Urine Specific [place] 1.010 Urine Protein 1+ Urine Glucose (UA) NEG Urine Ketones NEG Urine Occult Blood TRACE Urine Nitrite NEG Urine Bilirubin NEG Urine Urobilinogen NEG Urine Leukocyte Esterase NEG Urine WBC (Auto) 0 /hpf Urine RBC (Auto) 0-4 /hpf Urine Hyaline Casts (Auto) 1-5 /lpf Urine Epithelial Cells (Auto) 0-5 /lpf Urine Bacteria (Auto) NEG Free Thyroxine 1.26 ng/dl Assessment and Plan Acute toxic encephalopathy likely from abrupt medication withdrawal Pt admits to not always taking synthroid due to "causing him to eat more" and also states missing doses of gabapentin. Family interested in home health services at this time. Awaiting MRI brain to rule out organic disease however with substantial improvement in mentation, likely due to medication cessation. Atrial fibrillation - follow his rates, continue his amiodarone and continue his Pradaxa. Coronary artery disease and peripheral vascular disease - continue his aspirin. Dementia - continue his donepezil. Hypothyroidism; his TSH about 6 weeks ago was 75, it is now down to 12.5 and it appears that he has only been resumed on his Synthroid; about 3 or maybe 4 weeks ago, so certainly for true judgment of therapeutic dosing would want to repeat a TSH in another 2 weeks. Obtain T4. Pt admits to not always taking thyroid medication Benign prostatic hypertrophy and apparent overactive bladder - cont myrbytrec Deep venous thrombosis prophylaxis, Pradaxa.
[2016-07-14] MEDS ORDERED: GADAVIST IV PRN (14:00)
--- NOTE | 2016-07-14 14:03 | DIAGNOSTIC IMAGING REPORT ---
MRI OF THE BRAIN COMBO CLINICAL HISTORY: Change in mental status. Stroke like symptoms. COMPARISON STUDY: CT of the brain dated 07/12/2016. MRI of the brain dated 10/03/2015. TECHNIQUE: MRI of the brain was performed utilizing various T1 and T2-weighted sequences in the axial, sagittal, and coronal planes. Contrast-enhanced sequences were acquired following the administration of 9 cc of Gadavist. FINDINGS: Brain parenchyma: There are age-related involutional changes noting moderate confluent subcortical and periventricular microangiopathic disease. Left frontal encephalomalacia is unchanged and consistent with a remote infarct. Chronic lacunar infarcts are identified in the right cerebellar hemisphere and the right thalamus. There is no hemorrhage or mass effect. There is no restricted diffusion to suggest acute ischemia. No enhancing mass lesion is identified on the postcontrast images. Nickerson-white matter differentiation is preserved. No extra-axial fluid collection is seen. The cerebellar tonsils are normal in configuration. Ventricles, sulci, and cisterns: Prominent secondary to involutional change. Pituitary and sella: Partially the sella is incidentally noted. Intracranial vasculature: Normal flow voids are maintained at the skull base. Orbits: The bony orbits are grossly intact. Orbital contents are normal in appearance. Sinuses and mastoids: There is trace mucosal thickening within the maxillary antra. The remaining paranasal sinuses and the mastoid air cells are clear. Calvarium: Unremarkable. Cervical cord: Partially visualized cervical spinal cord is normal in morphology and signal intensity. IMPRESSION: 1. No acute intracranial abnormality. 2. Senescent changes and remote infarct as above. Electronically signed by: Nael Venegas M.D. 07/14/2016 2:01 PM Dictated Date/Time: 07/14/2016 1:57 PM
[2016-07-15 05:58] LABS: HEMATOCRIT 41.7 % (42-52); MEAN CELL VOLUME 92.5 fL (80-100); MEAN CORPUSCULAR HEMOGLOBIN 30.8 pg (25-34); MEAN CORPUSCULAR HGB CONC 33.3 g/dl (32-36); MEAN PLATELET VOLUME 11.6 fL (7.4-10.4); PLATELET COUNT 122 K/uL (130-400); RED BLOOD COUNT 4.51 M/uL (4.7-6.1); WHITE BLOOD COUNT 7.89 K/uL (4.8-10.8)
[2016-07-15] MEDS: LEVOTHYROXINE 137 MCG TAB PO SCH (06:03)
[2016-07-15 06:34] LABS: CREATININE 2.2 mg/dl (0.60-1.40)
[2016-07-15 07:21] VITALS: BP 117/63; PULSE 58; TEMP 36.5; O2SAT 98
[2016-07-15] MEDS: DONEPEZIL HCL 10 MG TAB PO SCH (08:05)
[2016-07-15] MEDS: GABAPENTIN 300 MG CAP PO SCH (08:05)
[2016-07-15] MEDS: DABIGATRAN ELEXILATE 75 MG CAP PO SCH (08:05)
[2016-07-15] MEDS: ASPIRIN 81 MG ECTAB PO SCH (08:05)
[2016-07-15] MEDS: AMIODARONE 200 MG TAB PO SCH (08:05)
[2016-07-15] MEDS: MIRABEGRON ER 25 MG TAB PO SCH (08:05)
[2016-07-15] MEDS: ISOSORBIDE MONONITRATE 30 MG TABCR PO SCH (08:05)
[2016-07-15] MEDS: SERTRALINE HCL 100 MG TAB PO SCH (08:06)
[2016-07-15] MEDS ORDERED: NRN300 PO (11:28)
--- NOTE | 2016-07-15 11:31 | Discharge Instructions ---
Discharge Instructions Date of Service July 15, 2016. Admission Reason for Admission: Altered Mental Status Discharge Discharge Diagnosis / Problem: Altered mental status Discharge Goals Goal(s): Decrease discomfort, Improve function, Increase independence, Improve disease control, Diagnostic testing, Therapeutic intervention Activity Recommendations Activity Limitations: resume your previous activity Shower/Bathe: no limitations . Instructions / Follow-Up Instructions / Follow-Up Patient to be discharged home with home health Instructed on importance of taking medications as directed Please continue taking gabapentin 300 mg twice a day If worsening confusion, fevers, chills please report to ER Please follow up with Dr Resendez in 1-2 weeks Current Hospital Diet Patient's current hospital diet: AHA Diet (Heart Healthy) Discharge Diet Recommended Diet: AHA Diet (Heart Healthy) Pending Studies Studies pending at discharge: no Medical Emergencies . Who to Call and When: Medical Emergencies: If at any time you feel your situation is an emergency, please call 911 immediately. . Non-Emergent Contact Non-Emergency issues call your: Primary Care Provider Call Non-Emergent contact if: you have a fever, your pain is worsening . . "Provider Documentation" section prepared by Hussain Naylor. . VTE Core Measure Inpt VTE Proph given/why not?: Treatment not indicated
[2016-07-15 11:46] VITALS: BP 117/63; PULSE 58; TEMP 36.5; O2SAT 98
--- NOTE | 2016-07-15 15:17 | Discharge Summary ---
Discharge Summary Date of Service July 15, 2016. Discharge Summary Admission Date: July 13, 2016 at 19:23 Discharge Date: July 15, 2016 Discharge Disposition: Home with services Principal Diagnosis: Toxic encephalopathy, noncompliance Immunizations: Have You Had Influenza Vaccine: N/A Influenza Vaccine Date: Dec 25, 2007 History of Tetanus Vaccine?: Unknown History of Pneumococcal: Unknown Pneumococcal Date: Aug 23, 2011 History of Hepatitis B Vaccine: No Medication Reconciliation New Medications: Gabapentin (Gabapentin) 300 Mg Cap 300 MG PO BID for 30 Days, #60 CAP Continued Medications: Amiodarone Hcl (Cordarone) 200 Mg Tab 200 MG PO DAILY, TAB Aspirin Enteric Coated (Ecotrin Or Generic) 81 Mg Tab 81 MG PO DAILY, TAB Cetirizine (Zyrtec) 10 Mg Tab 10 MG PO DAILY, TAB Dabigatran Etexilate Mesylate (Pradaxa) 150 Mg Cap 150 MG PO BID, CAP Docusate Sodium (Colace) 100 Mg Cap 1 CAP PO BID PRN for Constipation for 30 Days, #60 CAP Donepezil HCl (Donepezil HCl) 10 Mg Tab 10 MG PO DAILY, #90 Isosorbide Mononitrate Ext Rel (Imdur Ext Rel) 30 Mg Ertab 60 MG PO QAM, TAB Levothyroxine Sodium (Levothyroxine Sodium) 137 Mcg Tab 137 MCG PO DAILY, #30 Mirabegron (Myrbetriq Er) 50 Mg Tab 50 MG PO DAILY, #30 Nitroglycerin (Nitrostat) 0.4 Mg Sub 0.4 MG UT PRN, BTL NEEDED FOR CHEST PAIN : ONE TABLET UNDER THE TONGUE EVERY 5 MINUTES UP TO 3 DOSES. Pantoprazole (Protonix) 20 Mg Tab 20 MG PO DAILY PRN for GI Upset, #30 TAB Sertraline HCl (Sertraline HCl) 100 Mg Tab 100 MG PO DAILY, #30 [Prosvent] () 1 TAB PO DAILY Discharge Exam Review of Systems: Constitutional: No chills, No fever Respiratory: No cough, No sputum Cardiovascular: No chest pain, No orthopnea Abdomen: No nausea, No pain, No vomiting Musculoskeletal: No joint pain, No muscle pain Genitourinary - Male: No dysuria, No hematuria Physical Exam: General Appearance: WD/WN, no apparent distress Neck: supple, no adenopathy Respiratory/Chest: lungs clear, normal breath sounds Cardiovascular: no edema, no gallop Abdomen / GI: non tender, soft Neurologic/Psychiatric: alert, oriented x 3 Hospital Course Acute toxic encephalopathy likely from abrupt medication withdrawal Pt admits to not always taking synthroid due to "causing him to eat more" and also states missing doses of gabapentin. Family interested in home health services at this time. MRI brain neg for any intracranial disease. Pt back to baseline when meds resumed. Discharge home with home health services. Atrial fibrillation - follow his rates, continue his amiodarone and continue his Pradaxa. Coronary artery disease and peripheral vascular disease - continue his aspirin. Dementia - continue his donepezil. Hypothyroidism; his TSH about 6 weeks ago was 75, it is now down to 12.5 and it appears that he has only been resumed on his Synthroid; about 3 or maybe 4 weeks ago, so certainly for true judgment of therapeutic dosing would want to repeat a TSH in another 2 weeks. Obtain T4. Pt admits to not always taking thyroid medication Benign prostatic hypertrophy and apparent overactive bladder - cont myrbytrec Deep venous thrombosis prophylaxis, Pradaxa. Total Time Spent: Greater than 30 minutes This includes examination of the patient, discharge planning, medication reconciliation, and communication with other providers. Discharge Instructions Please refer to the electronic Patient Visit Report (Discharge Instructions) for additional information. Additional Copies To Сергей Resendez M.D.
== END 2016-07-15 13:00 | disposition home health service (06) ==
LOC: ENRESERVTM → ENRESERVDT → C.EDB 13:58 → C.MED 19:23
PROVIDERS: ADMIT Family Medicine; ATTEND Hospitalist
DX: G92 Toxic encephalopathy (principal); Z91.19 Patient's noncompliance with other medical treatment and regimen; I25.10 Atherosclerotic heart disease of native coronary artery without angina pectoris; I73.9 Peripheral vascular disease, unspecified; E03.9 Hypothyroidism, unspecified; I10 Essential (primary) hypertension; I25.2 Old myocardial infarction; Z87.891 Personal history of nicotine dependence; Z86.73 Personal history of transient ischemic attack (TIA), and cerebral infarction without residual deficits; Z79.899 Other long term (current) drug therapy; Z90.89 Acquired absence of other organs; I48.91 Unspecified atrial fibrillation; Z98.890 Other specified postprocedural states; Z79.82 Long term (current) use of aspirin; Z83.3 Family history of diabetes mellitus; Z82.3 Family history of stroke; Z80.0 Family history of malignant neoplasm of digestive organs

== ENCOUNTER → 2016-08-03 | Outpatient (CLI) | payer BC ==
[~2016-08-03] MED LIST changes: +ARC10 PO; -ARC5 PO; +CETI10TA84 PO; +DOCU-94 PO; -ESCI1TAB10 PO; -GABA1CAP4 PO; +ISOS30TA3 PO; -METO25TA56 PO; -MIRA100T PO; +MIRA1TAB3 PO; +NITR0.4S UT; +NRN300 PO; +PROSVENT PO; +PRT/20 PO; +SYN137 PO; +ZLF/100 PO
[2016-08-03 13:33] LABS: BASO % 0.8 %; BASO ABS # 0.05 K/uL (0-0.2); COMPLETE YES; EOS % 5.6 %; HEMATOCRIT 44.4 % (42-52); IG% 0.5 %; LYMPH % 23.4 %; LYMPH ABS # 1.47 K/uL (1.2-3.4); MEAN CELL VOLUME 93.3 fL (80-100); MEAN CORPUSCULAR HEMOGLOBIN 31.3 pg (25-34); MEAN CORPUSCULAR HGB CONC 33.6 g/dl (32-36); MEAN PLATELET VOLUME 12.1 fL (7.4-10.4); MONO % 6.8 %; NEUT % 62.9 %; PLATELET COUNT 145 K/uL (130-400); RED BLOOD COUNT 4.76 M/uL (4.7-6.1); WHITE BLOOD COUNT 6.29 K/uL (4.8-10.8)
[2016-08-03 14:24] LABS: URINE APPEARANCE CLEAR (CLEAR); URINE BILIRUBIN NEG (NEG); URINE COLOR YELLOW; URINE EPITHELIAL CELL AUTO 20-30 /lpf (0-5); URINE NITRITE NEG (NEG); UROBILINOGEN NEG (NEG); ZZUR CULT IF INDIC CLEAN CATCH NO
[2016-08-03 14:28] LABS: MANUAL MICROSCOPIC REQUIRED? NO; REVIEW REQ? NO
[2016-08-03 14:46] LABS: BLOOD UREA NITROGEN 26 mg/dl (7-18); BUN/CREATININE RATIO 13.9 (10-20); CALCIUM 8.6 mg/dl (8.5-10.1); CARBON DIOXIDE 24 mmol/L (21-32); CHLORIDE 105 mmol/L (98-107); GLUCOSE 120 mg/dl (70-99); MAGNESIUM 2.1 mg/dl (1.8-2.4); POTASSIUM 4.2 mmol/L (3.5-5.1); SODIUM 140 mmol/L (136-145)
== END | disposition home or self-care (01) ==
LOC: C.LABBC 12:03
PROVIDERS: ATTEND Internal Medicine Nephrology
DX: N18.4 Chronic kidney disease, stage 4 (severe) (principal)

== ENCOUNTER → 2016-09-11 | Outpatient (CLI) | payer BC ==
[2016-09-11 17:27] LABS: BLOOD UREA NITROGEN 24 mg/dl (7-18); BUN/CREATININE RATIO 11.2 (10-20); CALCIUM 8.8 mg/dl (8.5-10.1); CARBON DIOXIDE 31 mmol/L (21-32); CHLORIDE 104 mmol/L (98-107); GLUCOSE 123 mg/dl (70-99); SODIUM 138 mmol/L (136-145)
[2016-09-11 17:38] LABS: THYROID STIMULATING HORMONE 0.631 uIu/ml (0.300-4.500)
== END | disposition home or self-care (01) ==
LOC: C.LABBC 12:54
PROVIDERS: ATTEND Internal Medicine
DX: E03.9 Hypothyroidism, unspecified (principal); N18.4 Chronic kidney disease, stage 4 (severe)

== ENCOUNTER → 2016-10-13 | Outpatient (CLI) | payer BC ==
[2016-10-13 17:24] LABS: THYROID STIMULATING HORMONE 0.666 uIu/ml (0.300-4.500)
== END | disposition home or self-care (01) ==
LOC: C.LABBC 12:28
PROVIDERS: ATTEND Nurse Practitioner Adult Health
DX: E03.9 Hypothyroidism, unspecified (principal); R39.15 Urgency of urination

== ENCOUNTER → 2016-10-21 | Outpatient (CLI) | payer BC ==
[2016-10-21 18:22] LABS: LYME DISEASE AB IGG NEG (NEG); LYME DISEASE AB IGM NEG (NEG)
[2016-10-26 13:04] LABS: ALBUMIN 4.4 G/DL (3.8-4.8); GAMMA GLOBULIN 1.3 G/DL (0.8-1.7); TOTAL PROTEIN 7.4 G/DL (6.2-8.3)
== END | disposition home or self-care (01) ==
LOC: C.LABBC 15:03
PROVIDERS: ATTEND Psychiatry & Neurology Neurology
DX: G62.9 Polyneuropathy, unspecified (principal); R26.9 Unspecified abnormalities of gait and mobility; R29.898 Other symptoms and signs involving the musculoskeletal system

== ENCOUNTER → 2017-02-19 | Outpatient (CLI) | payer BC ==
[2017-02-19 16:52] LABS: BASO % 0.7 %; BASO ABS # 0.05 K/uL (0-0.2); COMPLETE YES; EOS % 5.6 %; HEMATOCRIT 45.3 % (42-52); IG% 0.6 %; LYMPH % 19.9 %; LYMPH ABS # 1.42 K/uL (1.2-3.4); MEAN CELL VOLUME 93.2 fL (80-100); MEAN CORPUSCULAR HEMOGLOBIN 31.3 pg (25-34); MEAN CORPUSCULAR HGB CONC 33.6 g/dl (32-36); MEAN PLATELET VOLUME 12.4 fL (7.4-10.4); MONO % 6.3 %; NEUT % 66.9 %; PLATELET COUNT 160 K/uL (130-400); RED BLOOD COUNT 4.86 M/uL (4.7-6.1); WHITE BLOOD COUNT 7.14 K/uL (4.8-10.8)
[2017-02-19 16:54] LABS: URINE APPEARANCE CLEAR (CLEAR); URINE BILIRUBIN NEG (NEG); URINE COLOR YELLOW; URINE NITRITE NEG (NEG); UROBILINOGEN NEG (NEG); ZZUR CULT IF INDIC CLEAN CATCH NO
[2017-02-19 16:57] LABS: MANUAL MICROSCOPIC REQUIRED? NO; REVIEW REQ? NO
[2017-02-19 17:12] LABS: URINE PROTIEN/CREAT RATIO 0.4 (0-0.2); URINE TOTAL PROTEIN 48.1 mg/dl (0-11.9)
[2017-02-19 17:20] LABS: BLOOD UREA NITROGEN 23 mg/dl (7-18); BUN/CREATININE RATIO 12.7 (10-20); CALCIUM 8.7 mg/dl (8.5-10.1); CARBON DIOXIDE 31 mmol/L (21-32); CHLORIDE 103 mmol/L (98-107); CREATININE 1.81 mg/dl (0.60-1.40); GLUCOSE 148 mg/dl (70-99); MAGNESIUM 2.1 mg/dl (1.8-2.4); PHOSPHORUS 2.8 mg/dl (2.5-4.9); POTASSIUM 4.2 mmol/L (3.5-5.1); SODIUM 135 mmol/L (136-145)
== END | disposition home or self-care (01) ==
LOC: C.LABBC 12:18
PROVIDERS: ATTEND Internal Medicine Nephrology
DX: N18.4 Chronic kidney disease, stage 4 (severe) (principal)

== ENCOUNTER → 2017-04-28 | Outpatient (CLI) | payer BC ==
--- NOTE | 2017-04-28 16:35 | DIAGNOSTIC IMAGING REPORT ---
CHEST 2 VIEWS ROUTINE CLINICAL HISTORY: R05 Productive cough dyspnea COMPARISON STUDY: 07/12/2016 FINDINGS: The bones soft tissues and hemidiaphragms are normal. The cardiomediastinal silhouette is normal. The lungs are clear. The pulmonary vasculature is normal. IMPRESSION: Negative chest. The above report was generated using voice recognition software. It may contain grammatical, syntax or spelling errors. Electronically signed by: Jakob Goodwin M.D. 04/28/2017 4:34 PM Dictated Date/Time: 04/28/2017 4:33 PM
[2017-04-28 17:20] LABS: BASO % 0.4 %; BASO ABS # 0.05 K/uL (0-0.2); EOS % 2.2 %; EOS ABS # 0.25 K/uL (0-0.5); HEMATOCRIT 42.3 % (42-52); HEMOGLOBIN 14.5 g/dL (14.0-18.0); IG# 0.07 K/uL (0.00-0.02); LYMPH % 13.6 %; LYMPH ABS # 1.54 K/uL (1.2-3.4); MEAN CELL VOLUME 91.6 fL (80-100); MEAN CORPUSCULAR HEMOGLOBIN 31.4 pg (25-34); MEAN CORPUSCULAR HGB CONC 34.3 g/dl (32-36); MEAN PLATELET VOLUME 12.1 fL (7.4-10.4); MONO % 9.3 %; MONO ABS # 1.05 K/uL (0.11-0.59); NEUT % 73.9 %; NEUT ABS # 8.37 K/uL (1.4-6.5); PLATELET COUNT 164 K/uL (130-400); RED CELL DISTRIBUTION WIDTH CV 13.9 % (11.5-14.5); RED CELL DISTRIBUTION WIDTH SD 46.5 fL (36.4-46.3); WHITE BLOOD COUNT 11.33 K/uL (4.8-10.8)
[2017-04-28 17:50] LABS: BLOOD UREA NITROGEN 31 mg/dl (7-18); CREATININE 2.02 mg/dl (0.60-1.40); GLUCOSE 96 mg/dl (70-99)
[2017-04-28 17:51] LABS: CALCIUM 8.9 mg/dl (8.5-10.1); CARBON DIOXIDE 27 mmol/L (21-32); SODIUM 137 mmol/L (136-145)
== END | disposition home or self-care (01) ==
LOC: C.RAD1850 16:01
PROVIDERS: ATTEND Nurse Practitioner Adult Health
DX: R05 Cough (principal)